=== PATIENT | female | born 1985 | race Two or more races ===

== ENCOUNTER 2022-11-22 09:45 | Emergency (ER) | payer MEDICAID ==
[~2022-11-22] VITALS: Ht 154.9 cm; Wt 85.4 kg
[2022-11-22 11:23] VITALS: BP 116/85
[2022-11-22] MEDS ORDERED: IBUP600T28 PO (12:14)
[2022-11-22] MEDS ORDERED: AMOX500T86 PO (12:14)
[2022-11-22] MEDS ORDERED: KETOROLAC TROMETH 30 MG/ML 1ML VIAL IM ONE (12:15)
[2022-11-22] MEDS ORDERED: CYCL-839 PO (12:23)
== END 2022-11-22 12:25 | disposition home or self-care (01) ==
LOC: ER 09:45
DX: S16.1XXA Strain of muscle, fascia and tendon at neck level, initial encounter (principal); H66.92 Otitis media, unspecified, left ear; R51.9 Headache, unspecified; V43.52XA Car driver injured in collision with other type car in traffic accident, initial encounter; Y93.89 Activity, other specified; Y92.89 Other specified places as the place of occurrence of the external cause; Y99.8 Other external cause status
CPT/HCPCS: 70450; 72125; 99284; J1885